=== PATIENT | male | born 1990 | race Caucasian/White ===

== ENCOUNTER 2023-07-02 11:58 | Day surgery (SDC) | payer OTHER ==
[2023-07-02] MEDS ORDERED: CEFAZOLIN SODIUM 1 GM/VIAL ONE (12:13)
[2023-07-02] MEDS ORDERED: Ringers Lactate 1,000 ML IV ONE (12:13)
[2023-07-02] MEDS ORDERED: MIDAZOLAM HCL 2 MG/2 ML INJ ONE (12:31)
[2023-07-02] MEDS ORDERED: ROCURONIUM 50 MG/5 ML VIAL IV ONE (12:31)
[2023-07-02] MEDS ORDERED: GLYCOPYRROLATE 0.2 MG/ML SYR ONE (12:31)
[2023-07-02] MEDS ORDERED: dexAMETHasone 10 MG/ML VIAL ONE (12:31)
[2023-07-02] MEDS ORDERED: ONDANSETRON 4 MG/2 ML VIAL ONE (12:31)
[2023-07-02] MEDS ORDERED: KETOROLAC 30 MG/ML INJ ONE (12:31)
[2023-07-02] MEDS ORDERED: NEOSTIGMINE 1 MG/ML -10 ML VIAL ONE (12:31)
[2023-07-02] MEDS ORDERED: LIDOCAINE 2% MPF 5 ML VIAL ONE (12:31)
[2023-07-02] MEDS ORDERED: propofoL 200 MG/20 ML VIAL IV ONE (12:31)
[2023-07-02 12:33] LABS: Absolute Eosinophils 0.1 K/uL (0-0.5); Absolute Lymphocytes (CBC) 2.4 K/uL (0.7-4.9); Basophils % 0.2 % (0-1.3); Hematocrit 39.8 % (39.6-49.0); Lymphocytes % 39.1 % (15.3-44.8); MCV 82.9 fL (80-100); MPV 8.2 fL (7.6-11.3); Platelets 261 thou/uL (152-406); RBC Red Blood Cell Count 4.79 M/uL (4.33-5.43)
[2023-07-02] MEDS ORDERED: HYDROMORPHONE HCL 2 MG/ML inj ONE (12:47)
--- NOTE | 2023-07-02 12:49 | RAD REPORT ---
EXAM DESCRIPTION: Vee Pereira (2 Views)07/02/2023 12:43 pm CLINICAL HISTORY: Preop COMPARISON: None FINDINGS: The lungs appear clear of acute infiltrate. The heart is normal size IMPRESSION: No acute abnormalities displayed
[2023-07-02 12:57] LABS: Albumin/Globulin Ratio 1.2 (1.1-1.8); Anion Gap 7.3 mEq/L (5.0-15.0); Bilirubin Direct 0.2 mg/dL (0-0.2); Bilirubin Indirect, Calculated 0.4 mg/dL (0.2-0.8); Bilirubin Total 0.6 mg/dL (0.2-1.0); Globulin 3.3 g/dL (2.3-3.5); Potassium 4.3 mEq/L (3.5-5.1); Protein, Total 7.3 g/dL (6.4-8.2)
[2023-07-02] MEDS: CEFOXITIN SODIUM 1 GM/VIAL ONE (13:19)
[2023-07-02] MEDS ORDERED: Mastisol Adhesive Liq ONE (13:50)
--- NOTE | 2023-07-02 14:11 | P.BOP ---
Preoperative diagnosis: symptomatic cholelithiasis, RUQ abd pain, acute cholecystitis Postoperative diagnosis: same Primary procedure: Laparoscopic cholecystectomy Estimated blood loss: <10cc Specimen: gb Findings: as above Anesthesia: General Complications: None Transferred to: Recovery Room Condition: Good
[2023-07-02 14:59] VITALS: O2SAT 99
[2023-07-02] MEDS: CODEINE 30MG/APAP 300MG TAB ONE (15:05)
[2023-07-02 15:33] VITALS: BP 155/93; TEMP 97.7
--- NOTE | 2023-07-03 08:51 | DS ---
Date of Discharge: 07/02/2023 Diagnoses: Symptomatic cholelithiasis, right upper quadrant abdominal pain, acute cholecystitis. Procedure: Laparoscopic cholecystectomy. Condition: Stable. Disposition: Home. Activity: As tolerated. No heavy lifting. Follow up in my office in 1 week, call for appointment [phone]. Keep area dry for 48 hours, then ma y shower. Keep Steri-Strips intact. RIKI/KIMMY Voice ID: [id number] Report ID: [id number]
--- NOTE | 2023-07-03 08:51 | OP ---
Surgeon: Otto Bull MD Preoperative Diagnoses: Symptomatic cholelithiasis, right upper quadrant abdominal pain, acute waldo cystitis. Postoperative Diagnoses: Symptomatic cholelithiasis, right upper quadrant abdominal pain, acute chol ecystitis. Procedure: Laparoscopic cholecystectomy. Estimated Blood Loss: Less than 10 cc. Specimen: Gallbladder. Anesthesia: General plus local. Complications: None. Indication: This is a case of a 33-year-old patient, comes to us with above diagnoses. Fully explai bea the benefits, alternatives, and risks of laparoscopic possible open cholecystectomy, which includ e, but not limited to infection, bleeding, damage to adjacent structures, anesthesia complication, ch oledocholithiasis, bile leak, pancreatitis, ID, and even . He also understands this may not rel ieve symptoms. He might need more than one surgical intervention. He understood and signed the cons ent. Procedure In Detail: The patient was brought to the operating room, placed in supine position. Anes thesia was done without complication. Abdominal area was prepped and draped in usual sterile fashion . Marcaine 0.5% was injected for local anesthetic, followed by sharp incision of the skin in the inf raumbilical region. Incision was carried down to the fascia, which was opened under direct vision. Peritoneum was encountered, opened under direct vision. Vicryl #1 placed inside the fascia. Bhupinder trocar was carefully introduced. Pneumoperitoneum was obtained. I placed 3 more trocars, 5 mm each one of them, 1 in epigastric area and 2 in the right upper quadrant using the same technique, which c onsisted of local anesthetic, sharp incision of the skin, introduction of the trocars under direct vi anatoly. This allowed me to put a grasper in the fundus of the gallbladder and another grasper in the i nfundibulum, retracting the gallbladder in the inferolateral fashion exposing the triangle of Calot, obtaining critical view. Cystic duct and cystic artery were clearly isolated and freed circumferenti ally, and a connection between those and the gallbladder were clearly identified. I proceeded to lig ate those by using at least 3 clips proximal, 1 clip distal, ligation in the middle. Same was done w ith the cystic artery. A small little branch of the cystic artery was also ligated using the same te chnique, making sure hepatic arteries and common bile duct were protected at all times. After that, we removed the gallbladder from the liver using Bovie cauterizer and removed from abdominal cavity us ing Endo Catch through the umbilical incision. The area was inspected once again. Clips were intact . No bile leak. No bleeding. At that moment, I proceeded to remove the trocars under direct vision , deflated pneumoperitoneum. Closed the fascia with #1 Vicryl; irrigated subcutaneous tissue, closed that with 3-0 chromic; and then the skin in a subcuticular fashion with 3-0 chromic and Steri-Strip on top. Sponge count and instrument counts were correct. The patient tolerated procedure well. The patient was sent to recovery in stable condition. RIKI/KIMMY Voice ID: [id number] Report ID: [id number]
== END 2023-07-02 15:51 | disposition home or self-care (01) ==
LOC: OR 11:58
PROVIDERS: ATTEND Surgery
PROC: 0FT44ZZ Resection of Gallbladder, Percutaneous Endoscopic Approach (ICD-10-PCS; principal; 2023-07-02 14:15)
DX: K80.10 Calculus of gallbladder with chronic cholecystitis without obstruction (principal); R10.11 Right upper quadrant pain; K76.0 Fatty (change of) liver, not elsewhere classified; Z87.891 Personal history of nicotine dependence
CPT/HCPCS: 85025; 80048; 36415; 80076; 88304; 83690; 71046; 47562; J2704; J2710; J2001; J2250; J1170; J1100; J0694; J2405; J7120; J0690